=== PATIENT | female | born 1990 | race Two or more races ===

== ENCOUNTER 2024-04-18 18:12 | Emergency (ER) | payer BC ==
[~2024-04-18] VITALS: Ht 165.1 cm; Wt 81.6 kg
[2024-04-18] MEDS ORDERED: diphenhydrAMINE HCL 50 MG/ML VIAL ONE (19:50)
[2024-04-18] MEDS ORDERED: METOCLOPRAMIDE HCL 10 MG/2 ML VIAL ONE (19:50)
[2024-04-18] MEDS ORDERED: SUMATRIPTAN SUCCINATE 6 MG/0.5 ML VIAL SQ ONE (19:50)
[2024-04-18 19:57] LABS: BASOPHILS % (AUTO) 0.5 % (0.0-2.0); EOSINOPHILS # (AUTO) 0.2 K/uL (0.0-0.7); EOSINOPHILS % (AUTO) 1.9 % (0.0-6.0); HEMATOCRIT 40 % (33-45); HEMOGLOBIN 13.2 g/dL (11.5-14.8); LYMPHOCYTES # (AUTO) 2.5 K/uL (0.8-4.8); LYMPHOCYTES % (AUTO) 24.1 % (20.0-44.0); MEAN CORPUSCULAR HEMOGLOBIN 28 PG (26.0-33.0); MEAN CORPUSCULAR HGB CONC 33 g/dl (31.0-36.0); MEAN CORPUSCULAR VOLUME 85 fL (82-100); MONOCYTES # (AUTO) 0.7 K/uL (0.1-1.30); MONOCYTES % (AUTO) 6.6 % (2.0-12.0); NEUTROPHILS # (AUTO) 6.9 K/uL (1.8-8.9); NEUTROPHILS % (AUTO) 66.9 % (43.0-81.0); PLATELET COUNT (AUTO) 359 K/uL (150-450); RED BLOOD CELL COUNT(AUTO) 4.69 MIL/uL (4.0-5.2); RED CELL DISTRIBUTION WIDTH 15.7 % (11.5-15.0); WHITE BLOOD COUNT (AUTO) 10.3 K/uL (4.3-11.0)
[2024-04-18] MEDS: diphenhydrAMINE HCL 50 MG/ML VIAL IV ONE (20:00)
[2024-04-18] MEDS: IV NS 0.9% 1,000 ML BAG IV ONE (20:08)
[2024-04-18] MEDS: SUMATRIPTAN SUCCINATE 6 MG/0.5 ML VIAL SQ ONE (20:09)
[2024-04-18] MEDS: METOCLOPRAMIDE HCL 10 MG/2 ML VIAL IV ONE (20:09)
[2024-04-18 20:10] LABS: CALCIUM, SERUM 9.4 mg/dL (8.5-10.1); CARBON DIOXIDE 28 mmol/L (21-32); CHLORIDE 103 mmol/L (98-107); CREATININE 0.9 mg/dL (0.6-1.3); GLUCOSE 103 mg/dL (74-106); POTASSIUM 3.5 mmol/L (3.5-5.1); SODIUM SERUM 138 mmol/L (136-145); UREA NITROGEN, BLOOD 12 mg/dL (7-18)
[2024-04-18 20:22] LABS: NT-PRO BNP 29 pg/mL (0-125)
[2024-04-18 20:29] LABS: D-DIMER 0.44 mg/L(FEU (0.17-0.50); INR 0.99 (0.91-1.10); PARTIAL THROMBOPLASTIN TIME 31.7 SEC (24.3-34.3); PROTHROMBIN TIME 10.5 SECS (9.2-11.1)
[2024-04-18] MEDS ORDERED: SUMA100T PO (20:46)
[2024-04-18] MEDS ORDERED: METO-295 PO (20:46)
[2024-04-18 20:58] VITALS: BP 134/61; TEMP 98.1; O2SAT 98
== END 2024-04-18 20:59 | disposition home or self-care (01) ==
LOC: ER 18:34
DX: G43.909 Migraine, unspecified, not intractable, without status migrainosus (principal); R07.89 Other chest pain; Z79.899 Other long term (current) drug therapy
CPT/HCPCS: 99285; 96374; 71045; 96361; 96375; 93005; 85025; 80048; 85378; 36415; 84484; 85730; 83880; 96372; J1200; J3030; J2765; J7030

== ENCOUNTER 2025-02-08 18:40 | Inpatient (IN) | payer BC, OTHER ==
[~2025-02-08] VITALS: Ht 165.1 cm; Wt 82.1 kg
[~2025-02-08 18:40] MED LIST: METO-295 PO; SUMA100T PO
[2025-02-08] MEDS ORDERED: HYDROMORPHONE 1 MG/1 ML DISP.SYRIN ONE ×3 (19:44→23:20)
[2025-02-08] MEDS: HYDROMORPHONE 1 MG/1 ML DISP.SYRIN IV ONE ×2 (19:45→21:22)
[2025-02-08] MEDS: HYDROMORPHONE 1 MG/1 ML DISP.SYRIN IM ONE (19:50)
[2025-02-08 21:46] LABS: BASOPHILS % (AUTO) 0.1 % (0.0-2.0); EOSINOPHILS % (AUTO) 0.2 % (0.0-6.0); HEMATOCRIT 39 % (33-45); HEMOGLOBIN 12.7 g/dL (11.5-14.8); LYMPHOCYTES # (AUTO) 1.2 K/uL (0.8-4.8); LYMPHOCYTES % (AUTO) 7.8 % (20.0-44.0); MEAN CORPUSCULAR HEMOGLOBIN 27 PG (26.0-33.0); MEAN CORPUSCULAR HGB CONC 33 g/dl (31.0-36.0); MEAN CORPUSCULAR VOLUME 84 fL (82-100); MONOCYTES # (AUTO) 0.7 K/uL (0.1-1.30); MONOCYTES % (AUTO) 4.3 % (2.0-12.0); NEUTROPHILS # (AUTO) 13.9 K/uL (1.8-8.9); NEUTROPHILS % (AUTO) 87.6 % (43.0-81.0); PLATELET COUNT (AUTO) 289 K/uL (150-450); RED BLOOD CELL COUNT(AUTO) 4.64 MIL/uL (4.0-5.2); RED CELL DISTRIBUTION WIDTH 14.8 % (11.5-15.0); WHITE BLOOD COUNT (AUTO) 15.9 K/uL (4.3-11.0)
[2025-02-08 21:55] LABS: CALCIUM, SERUM 8.8 mg/dL (8.5-10.1); CREATININE 0.8 mg/dL (0.6-1.3); POTASSIUM 3.7 mmol/L (3.5-5.1)
[2025-02-08 21:58] LABS: INR 1.03 (0.91-1.10); PARTIAL THROMBOPLASTIN TIME 26.1 SEC (24.3-34.3); PROTHROMBIN TIME 10.9 SECS (9.2-11.1)
[2025-02-08] MEDS ORDERED: Z GUARD REMEDY 4 OZ OINT TP PRN (23:00)
[2025-02-08] MEDS ORDERED: MAGNESIUM HYDROXIDE 30 ML UDC PO PRN (23:00)
[2025-02-08] MEDS: HYDROMORPHONE 1 MG/1 ML DISP.SYRIN IV PRN (23:20)
[2025-02-09] VITALS: BP 113/60; TEMP 98.2; O2SAT 100
[2025-02-09] MEDS: IV D5/0.45 NACL 1,000 ML IV PRN (00:39)
[2025-02-09] MEDS: ONDANSETRON HCL/PF 4 MG/2 ML VIAL IVP PRN (00:52)
[2025-02-09 06:28] LABS: BASOPHILS % (AUTO) 0.2 % (0.0-2.0); EOSINOPHILS % (AUTO) 0.3 % (0.0-6.0); HEMATOCRIT 36 % (33-45); HEMOGLOBIN 12.1 g/dL (11.5-14.8); LYMPHOCYTES # (AUTO) 1.8 K/uL (0.8-4.8); LYMPHOCYTES % (AUTO) 18.8 % (20.0-44.0); MEAN CORPUSCULAR HEMOGLOBIN 28 PG (26.0-33.0); MEAN CORPUSCULAR HGB CONC 34 g/dl (31.0-36.0); MEAN CORPUSCULAR VOLUME 83 fL (82-100); MONOCYTES # (AUTO) 0.7 K/uL (0.1-1.30); MONOCYTES % (AUTO) 6.7 % (2.0-12.0); NEUTROPHILS # (AUTO) 7.2 K/uL (1.8-8.9); PLATELET COUNT (AUTO) 283 K/uL (150-450); RED BLOOD CELL COUNT(AUTO) 4.35 MIL/uL (4.0-5.2); RED CELL DISTRIBUTION WIDTH 14.8 % (11.5-15.0); WHITE BLOOD COUNT (AUTO) 9.8 K/uL (4.3-11.0)
[2025-02-09 06:51] LABS: THYROID STIMULATING HORMONE 0.22 uIU/mL (0.358-3.74)
[2025-02-09 07:09] LABS: CALCIUM, SERUM 8.6 mg/dL (8.5-10.1); CREATININE 0.7 mg/dL (0.6-1.3); MAGNESIUM 2.1 mg/dL (1.8-2.4); POTASSIUM 3.8 mmol/L (3.5-5.1)
[2025-02-09 07:32] LABS: PHOSPHORUS 3.7 mg/dL (2.5-4.9)
[2025-02-09 08:00] VITALS: BP 112/69; TEMP 98.1; O2SAT 97
[2025-02-09] MEDS ORDERED: MIDAZOLAM HCL 2 MG/2ML VIAL ONE (09:06)
[2025-02-09] MEDS ORDERED: FENTANYL PF 250MCG/5ML AMPUL ONE (09:06)
[2025-02-09] MEDS ORDERED: ROCURONIUM BROMIDE 50 MG/5 ML ONE (09:07)
[2025-02-09] MEDS ORDERED: BUPIVACAINE 0.25% 75 MG/30 ML VIAL ONE (09:58)
[2025-02-09] MEDS ORDERED: TRANEXAMIC ACID 1,000 MG/10 ML VIAL ONE (10:14)
[2025-02-09] MEDS ORDERED: ROPIVACAINE HCL 0.5% 5 MG/ML 30ML VIAL ONE (10:16)
[2025-02-09] MEDS ORDERED: MORPHINE SULFATE INJ 10 MG/ML DISP.SYRIN IV PRN (13:30)
[2025-02-09] MEDS ORDERED: METOCLOPRAMIDE HCL 10 MG/2 ML VIAL IV PRN (13:30)
[2025-02-09] MEDS ORDERED: MEPERIDINE HCL/PF 50 MG/ML DISP.SYRIN IV PRN (13:30)
[2025-02-09] MEDS ORDERED: ONDANSETRON HCL/PF 4 MG/2 ML VIAL IVP PRN (13:30)
[2025-02-09 14:41] LABS: HEMOGLOBIN 11.5 g/dL (11.5-14.8)
[2025-02-09] MEDS ORDERED: MEPERIDINE25 MG SYR 25 MG/ML VIAL ONE (14:45)
[2025-02-09 16:00] VITALS: BP 92/59; TEMP 98.6; O2SAT 96
[2025-02-09] MEDS: CEFAZOLIN 2 GM in IV D5W 100 ML IV SCH (18:04)
[2025-02-09] MEDS: ACETAMINOPHEN 325 MG TABLET PO PRN (18:52)
[2025-02-09 20:00] VITALS: BP 114/65; TEMP 99.1; O2SAT 98
[2025-02-10 08:00] VITALS: BP 104/71; TEMP 97.5; O2SAT 100
[2025-02-10] MEDS: HYDROCODONE/APAP 5/325MG TABLET PO PRN (10:46)
[2025-02-10] MEDS: BACLOFEN (10 MG) 10 MG TABLET PO SCH (10:56)
[2025-02-10 11:04] LABS: BASOPHILS % (AUTO) 0.2 % (0.0-2.0); EOSINOPHILS # (AUTO) 0.1 K/uL (0.0-0.7); EOSINOPHILS % (AUTO) 0.6 % (0.0-6.0); HEMATOCRIT 28 % (33-45); HEMOGLOBIN 9.3 g/dL (11.5-14.8); LYMPHOCYTES # (AUTO) 2.8 K/uL (0.8-4.8); LYMPHOCYTES % (AUTO) 30.6 % (20.0-44.0); MEAN CORPUSCULAR HEMOGLOBIN 28 PG (26.0-33.0); MEAN CORPUSCULAR HGB CONC 33 g/dl (31.0-36.0); MEAN CORPUSCULAR VOLUME 83 fL (82-100); MONOCYTES # (AUTO) 0.7 K/uL (0.1-1.30); MONOCYTES % (AUTO) 8.1 % (2.0-12.0); NEUTROPHILS # (AUTO) 5.5 K/uL (1.8-8.9); NEUTROPHILS % (AUTO) 60.5 % (43.0-81.0); PLATELET COUNT (AUTO) 216 K/uL (150-450); RED BLOOD CELL COUNT(AUTO) 3.36 MIL/uL (4.0-5.2); RED CELL DISTRIBUTION WIDTH 14.4 % (11.5-15.0); WHITE BLOOD COUNT (AUTO) 9.1 K/uL (4.3-11.0)
[2025-02-10 11:21] LABS: CALCIUM, SERUM 7.9 mg/dL (8.5-10.1); CREATININE 0.8 mg/dL (0.6-1.3); POTASSIUM 3.2 mmol/L (3.5-5.1)
[2025-02-10] MEDS: ENOXAPARIN SODIUM 40 MG/0.4 ML DISP.SYRIN SQ SCH (15:20)
[2025-02-10 16:00] VITALS: BP 111/62; TEMP 97.5; O2SAT 100
[2025-02-10] MEDS: POTASSIUM CHLORIDE 20 MEQ TAB.PRT.SR PO ONE (18:38)
[2025-02-11 07:09] LABS: BASOPHILS % (AUTO) 0.5 % (0.0-2.0); EOSINOPHILS # (AUTO) 0.1 K/uL (0.0-0.7); EOSINOPHILS % (AUTO) 1.5 % (0.0-6.0); HEMATOCRIT 29 % (33-45); HEMOGLOBIN 9.8 g/dL (11.5-14.8); LYMPHOCYTES # (AUTO) 2.7 K/uL (0.8-4.8); LYMPHOCYTES % (AUTO) 29.8 % (20.0-44.0); MEAN CORPUSCULAR HEMOGLOBIN 28 PG (26.0-33.0); MEAN CORPUSCULAR HGB CONC 34 g/dl (31.0-36.0); MEAN CORPUSCULAR VOLUME 84 fL (82-100); MONOCYTES # (AUTO) 0.8 K/uL (0.1-1.30); MONOCYTES % (AUTO) 9.1 % (2.0-12.0); NEUTROPHILS # (AUTO) 5.4 K/uL (1.8-8.9); NEUTROPHILS % (AUTO) 59.1 % (43.0-81.0); PLATELET COUNT (AUTO) 238 K/uL (150-450); RED BLOOD CELL COUNT(AUTO) 3.48 MIL/uL (4.0-5.2); RED CELL DISTRIBUTION WIDTH 14.6 % (11.5-15.0); WHITE BLOOD COUNT (AUTO) 9.1 K/uL (4.3-11.0)
[2025-02-11 07:30] VITALS: BP 127/81; TEMP 99.9; O2SAT 100
[2025-02-11 07:38] LABS: CALCIUM, SERUM 8.1 mg/dL (8.5-10.1); CREATININE 0.6 mg/dL (0.6-1.3); MAGNESIUM 2.1 mg/dL (1.8-2.4); PHOSPHORUS 2.5 mg/dL (2.5-4.9); POTASSIUM 4.1 mmol/L (3.5-5.1)
[2025-02-11] MEDS: DOCUSATE SODIUM 100 MG CAPSULE PO SCH (13:00)
[2025-02-11 16:27] VITALS: BP 115/73; TEMP 99.1; O2SAT 98
[2025-02-11 17:41] LABS: APPEARANCE,URINE CLEAR (CLEAR); BILIRUBIN,URINE NEGATIVE (NEGATIVE); BLOOD, URINE 2+ Ery/uL (NEGATIVE); COLOR,URINE YELLOW (YELLOW); KETONES,URINE NEGATIVE (NEGATIVE); LEUKOCYTE ESTERASE ,URINE NEGATIVE (NEGATIVE); NITRITE, URINE NEGATIVE (NEGATIVE); PH,URINE 6.5 (5.0-8.0); PROTEIN,URINE NEGATIVE (NEGATIVE); UGLUCOSE NEGATIVE (NEGATIVE); UROBILINOGEN,URINE 0.2 EU/dL (0.2)
[2025-02-11 18:46] LABS: ADD URINE CULTURE NO; BACTERIA,URINE None seen /HPF (None Seen); RBC,URINE 21-50 /HPF (0-2); WBC,URINE 0-2 /HPF (0-3)
[2025-02-11 20:00] VITALS: BP 120/74; TEMP 98.1; O2SAT 98
[2025-02-12] MEDS: ONDANSETRON HCL/PF 4 MG/2 ML VIAL IV PRN (05:40)
[2025-02-12 07:30] VITALS: BP 115/73; TEMP 98.6; O2SAT 99
[2025-02-12 08:00] VITALS: BP 115/83; TEMP 98.6; O2SAT 99
[2025-02-12 16:00] VITALS: BP 127/78; TEMP 98.6; O2SAT 96
[2025-02-12] MEDS: FAMOTIDINE (20 MG) 20 MG TABLET PO SCH (17:25)
[2025-02-12] MEDS ORDERED: FAMOTIDINE (20 MG) 20 MG TABLET PO SCH (17:30)
[2025-02-12 20:32] VITALS: BP 116/69; TEMP 99.9; O2SAT 100
[2025-02-12 22:52] VITALS: BP 116/69; TEMP 99.9
[2025-02-13] MEDS: HYDROMORPHONE 1 MG/1 ML DISP.SYRIN IV ONE (02:09)
[2025-02-13 09:47] VITALS: BP 108/71; TEMP 99.2; O2SAT 95
[2025-02-13] MEDS: MELOXICAM 7.5 MG TABLET PO SCH (10:47)
[2025-02-13] MEDS: POLYETHYLENE GLYCOL 3350 17 GM POWD.PACK PO SCH (10:47)
[2025-02-13] MEDS: PREGABALIN 25 MG CAPSULE PO SCH (10:47)
[2025-02-13 14:39] LABS: APPEARANCE,URINE SLIGHTLY CLOUDY (CLEAR); BILIRUBIN,URINE NEGATIVE (NEGATIVE); BLOOD, URINE 2+ Ery/uL (NEGATIVE); COLOR,URINE YELLOW (YELLOW); KETONES,URINE NEGATIVE (NEGATIVE); LEUKOCYTE ESTERASE ,URINE 2+ (NEGATIVE); NITRITE, URINE POSITIVE (NEGATIVE); PH,URINE 6.5 (5.0-8.0); PROTEIN,URINE 1+ mg/dl (NEGATIVE); UGLUCOSE NEGATIVE (NEGATIVE); UROBILINOGEN,URINE 0.2 EU/dL (0.2)
[2025-02-13 14:54] LABS: WBC,URINE 81-100 /HPF (0-3)
[2025-02-13 14:55] LABS: ADD URINE CULTURE YES; BACTERIA,URINE 1+ /HPF (None Seen); SQUAMOUS EPITHELIAL CELL,UR 0-2 /HPF (None Seen)
[2025-02-13 16:11] VITALS: BP 116/78; TEMP 98.1; O2SAT 99
[2025-02-13 20:00] VITALS: BP 123/70; TEMP 97.8; O2SAT 98
[2025-02-13] MEDS: SENNOSIDES 8.6 MG TABLET PO SCH (21:20)
[2025-02-13] MEDS: CEFTRIAXONE 1GM BAG (ER ONLY) 50 ML IV ONE (22:47)
[2025-02-13] MEDS: CEFTRIAXONE 1 G in IV D5W 50 ML IV SCH (22:48)
[2025-02-14] MEDS: METHOCARBAMOL (750MG) 750 MG TABLET PO PRN (00:43)
[2025-02-14 07:00] VITALS: BP 113/72; TEMP 99.5; O2SAT 97
[2025-02-14 09:43] LABS: BASOPHILS # (AUTO) 0.1 K/uL (0.0-0.2); BASOPHILS % (AUTO) 0.5 % (0.0-2.0); EOSINOPHILS # (AUTO) 0.4 K/uL (0.0-0.7); EOSINOPHILS % (AUTO) 3.2 % (0.0-6.0); HEMATOCRIT 31 % (33-45); HEMOGLOBIN 9.9 g/dL (11.5-14.8); LYMPHOCYTES # (AUTO) 2.4 K/uL (0.8-4.8); LYMPHOCYTES % (AUTO) 19.8 % (20.0-44.0); MEAN CORPUSCULAR HEMOGLOBIN 27 PG (26.0-33.0); MEAN CORPUSCULAR HGB CONC 33 g/dl (31.0-36.0); MEAN CORPUSCULAR VOLUME 84 fL (82-100); MONOCYTES # (AUTO) 0.9 K/uL (0.1-1.30); MONOCYTES % (AUTO) 7.6 % (2.0-12.0); NEUTROPHILS # (AUTO) 8.2 K/uL (1.8-8.9); NEUTROPHILS % (AUTO) 68.9 % (43.0-81.0); PLATELET COUNT (AUTO) 358 K/uL (150-450); RED BLOOD CELL COUNT(AUTO) 3.64 MIL/uL (4.0-5.2); RED CELL DISTRIBUTION WIDTH 14.6 % (11.5-15.0); WHITE BLOOD COUNT (AUTO) 11.9 K/uL (4.3-11.0)
[2025-02-14 10:15] LABS: CALCIUM, SERUM 8.6 mg/dL (8.5-10.1); CREATININE 0.7 mg/dL (0.6-1.3); MAGNESIUM 2.1 mg/dL (1.8-2.4); PHOSPHORUS 4.1 mg/dL (2.5-4.9); POTASSIUM 3.9 mmol/L (3.5-5.1)
[2025-02-14] MEDS: oxyCODONE/APAP (5/325 MG) 1 UDTAB TABLET PO PRN (13:47)
[2025-02-14] MEDS ORDERED: PREGABALIN 25 MG CAPSULE PO SCH (17:00)
[2025-02-15] MEDS ORDERED: MELOXICAM 7.5 MG TABLET PO SCH (09:00)
== END 2025-02-14 15:21 | DRG 481 ==
LOC: ER 18:48 → MED 22:38
PROVIDERS: ADMIT Nurse Practitioner Family; ATTEND Nurse Practitioner Family
PROC: 0QS606Z Reposition Right Upper Femur with Intramedullary Internal Fixation Device, Open Approach (ICD-10-PCS; principal; 2025-02-09 10:00)
DX: S72.144A Nondisplaced intertrochanteric fracture of right femur, initial encounter for closed fracture (principal); N39.0 Urinary tract infection, site not specified; S72.23XA Displaced subtrochanteric fracture of unspecified femur, initial encounter for closed fracture; W01.0XXA Fall on same level from slipping, tripping and stumbling without subsequent striking against object, initial encounter; E03.9 Hypothyroidism, unspecified; D72.828 Other elevated white blood cell count; F43.89 Other reactions to severe stress; R73.9 Hyperglycemia, unspecified; B96.89 Other specified bacterial agents as the cause of diseases classified elsewhere; Y93.89 Activity, other specified; Y92.009 Unspecified place in unspecified non-institutional (private) residence as the place of occurrence of the external cause
CPT/HCPCS: 36415; 71045-TC; 73501; 73502; 73552; 73564-TC; 73700-TC; 80048-TC; 81001; 83735-TC; 84100-TC; 84439-TC; 84443-TC; 84481; 84702-TC; 85025-TC; 85027-TC; 85730-TC; 86850-TC; 87081-TC; 87086-TC; 97110-TC; 97116-TC; 97530-TC; 97535-TC; A4223; A6209; A6253; C1713; G0378; J0330; J0690; J0696; J1100; J1171; J1650; J1885; J2175; J2250; J2405; J2704; J2765; J2795; J3010; J3490; J7030; J7050; J7060